=== PATIENT | female | born 1990 | race Caucasian/White ===

== ENCOUNTER 2020-01-21 11:44 | Emergency (ER) | payer OTHER ==
[~2020-01-21] VITALS: Ht 165.1 cm; Wt 122.5 kg
[~2020-01-21 11:44] MED LIST: ALBUTEROL INHAL17 GM INH; IBUPROFEN 400400 M2 PO; IBUPROFEN 600600 M1 PO; IBUPROFEN 800800 MG PO; MEDROLDOSEPACK PO; NOHOMEMEDICATIONS; NORFLEX100 MG PO; PERCOCET 5-3251 EACH PO; PRENATAL; RANITIDINE 150150 M1; TARON-C DHA CA1 EACH; TESSALON200 MG PO; ZPAK PO
[2020-01-21 11:52] VITALS: BP 157/72
[2020-01-21] MEDS ORDERED: FISH OIL 1,001000 M2 PO (11:54)
[2020-01-21] MEDS ORDERED: OMEPRAZOLE 20 M20 M1 PO (11:54)
[2020-01-21] MEDS ORDERED: TRAMADOL 50 MG50 MG PO (12:29)
[2020-01-21] MEDS ORDERED: KEFLEX500 M1 PO (12:29)
== END 2020-01-21 12:43 | disposition home or self-care (01) ==
LOC: M.ERS 11:44
DX: L60.0 Ingrowing nail (principal); Z90.49 Acquired absence of other specified parts of digestive tract; Z98.890 Other specified postprocedural states; Z98.51 Tubal ligation status; Z88.6 Allergy status to analgesic agent

== ENCOUNTER 2021-01-12 11:28 | Emergency (ER) | payer OTHER ==
[~2021-01-12] VITALS: Ht 162.6 cm; Wt 108.9 kg
[~2021-01-12 11:28] MED LIST changes: +FISH OIL 1,001000 M2 PO; +KEFLEX500 M1 PO; +OMEPRAZOLE 20 M20 M1 PO; +TRAMADOL 50 MG50 MG PO
[2021-01-12 12:18] LABS: ABSOLUTE EOSINOPHILS 0.1 thou/uL (0.0-0.7); ABSOLUTE LYMPHOCYTES 2.9 thou/uL (0.8-5.3); ABSOLUTE MONOCYTES 0.3 thou/uL (0.0-1.2); ABSOLUTE NEUTROPHILS 3.4 thou/uL (1.6-8.1); BASOPHILS 0.7 %; EOSINOPHILS 1.5 %; HEMATOCRIT 37.2 % (37.0-47.0); HEMOGLOBIN 12.1 gm/dL (12.0-15.0); LYMPHOCYTES 42.7 %; MCH 26.4 pg (26.0-34.0); MCHC 32.5 g/dL (28.0-37.0); MCV 81.4 fL (80.0-100.0); MONOCYTES 4.6 %; NUCLEATED RBCS 0 /100WBC; PLATELET COUNT* 359 thou/uL (150-400); POLYS 50.5 %; RBC 4.57 mil/uL (4.20-5.00); RDW-CV 16.1 % (10.5-14.5); WBC 6.7 thou/uL (4.0-11.0)
[2021-01-12 12:22] LABS: CALCIUM 8.9 mg/dL (8.5-10.1); CREATININE 0.7 mg/dL (0.6-1.3)
[2021-01-12 12:27] LABS: ALBUMIN 4.1 g/dL (3.4-5.0); TOTAL BILIRUBIN 0.3 mg/dL (<0.1-1.0); TOTAL PROTEIN 8.3 g/dL (6.4-8.2)
[2021-01-12 12:36] LABS: URINE BILIRUBIN NEGATIVE (Negative); URINE BLOOD NEGATIVE (Negative); URINE CLARITY CLEAR; URINE COLOR YELLOW; URINE GLUCOSE-RANDOM NEGATIVE (Negative); URINE KETONES NEGATIVE (Negative); URINE LEUKOCYTES-REFLEX NEGATIVE (Negative); URINE NITRITE-REFLEX NEGATIVE (Negative); URINE PROTEIN NEGATIVE (Negative); URINE SPECIFIC GRAVITY <= 1.005 (1.005-1.030); URINE UROBILINOGEN 0.2 E.U./dl (0.2-1.0)
[2021-01-12] MEDS ORDERED: IBUPROFEN 800800 M1 PO (13:31)
[2021-01-12] MEDS ORDERED: NORCO5 PO ×2 (13:31→15:42)
[2021-01-12 13:40] VITALS: BP 108/60
== END 2021-01-12 13:40 | disposition home or self-care (01) ==
LOC: M.ERS 11:28
PROVIDERS: Nurse Practitioner Family
DX: N83.202 Unspecified ovarian cyst, left side (principal); Z88.5 Allergy status to narcotic agent; Z90.89 Acquired absence of other organs; Z98.890 Other specified postprocedural states; Z98.51 Tubal ligation status

== ENCOUNTER 2021-03-29 16:54 | Emergency (ER) | payer OTHER ==
[~2021-03-29] VITALS: Ht 165.1 cm; Wt 109.8 kg
[~2021-03-29 16:54] MED LIST changes: +IBUPROFEN 800800 M1 PO; +NORCO5 PO
[2021-03-29] MEDS ORDERED: PROAIR HFA8.5 GM INH (17:25)
[2021-03-29 17:54] VITALS: BP 141/70
== END 2021-03-29 17:55 | disposition home or self-care (01) ==
LOC: M.ERS 16:54
DX: U07.1 COVID-19 (principal); R06.02 Shortness of breath; E66.01 Morbid (severe) obesity due to excess calories; Z68.41 Body mass index [BMI] 40.0-44.9, adult; Z88.5 Allergy status to narcotic agent; Z90.89 Acquired absence of other organs; Z98.890 Other specified postprocedural states; Z98.51 Tubal ligation status